=== PATIENT | female | born 1990 | race Caucasian/White ===

== ENCOUNTER 2017-03-26 12:05 | Emergency (ER) | payer BC, OTHER ==
[~2017-03-26] VITALS: Ht 154.9 cm; Wt 63.6 kg
[2017-03-26] MEDS ORDERED: Birth control pill PO (12:18)
[2017-03-26] MEDS ORDERED: IBUPROFEN 600 MG TAB PO ONE (12:30)
[2017-03-26] MEDS ORDERED: IBUP-1022 PO (13:44)
[2017-03-26] MEDS ORDERED: CYCL10TA PO (13:44)
[2017-03-26 14:04] VITALS: BP 128/82
--- NOTE | 2017-03-26 14:20 | REP ---
REASON: Pain in the neck after trauma. PRIORS: None. There is no acute cervical spine fracture. The facet joints are well aligned bilaterally. There is mild cervical kyphosis possibly secondary to muscular spasm. Vertebral body height and alignment is otherwise unremarkable. The disc spaces are symmetric and well maintained. There is no abnormal paraspinal soft tissue swelling. IMPRESSION: No fracture. Signed by Lionel Brush DO 03/26/2017 04:41 P
--- NOTE | 2017-03-26 14:23 | REP ---
REASON: Pain after trauma. COMPARISON: None. The exam is limited by the lack of intravenous contrast administration. There is no mediastinal or hilar adenopathy. There are no pleural or pericardial effusions. The imaged upper abdomen is within normal limits. The imaged osseous structures are within normal limits. Evaluation of the lung benitez show a minimal focal opacity in the posterior right upper lobe most consistent with subsegmental atelectatic change. The lung benitez are otherwise clear. There is no pneumothorax. IMPRESSION: Essentially negative CT examination of the chest. Signed by Lionel Brush DO 03/26/2017 04:41 P
--- NOTE | 2017-03-26 14:34 | REP ---
REASON: Pain after trauma. COMPARISON: None. FINDINGS: The compartments are symmetric and relatively well maintained. There is no acute fracture or destructive osseous lesion. Signed by Lionel Brush DO 03/26/2017 04:41 P
--- NOTE | 2017-03-26 14:35 | REP ---
REASON: Pain after trauma. PRIORS: None. FINDINGS: No acute fracture or destructive osseous lesion. Signed by Lionel Brush DO 03/26/2017 04:41 P
== END 2017-03-26 14:08 | disposition home or self-care (01) ==
LOC: EDBD → M ED 12:05
DX: S13.4XXA Sprain of ligaments of cervical spine, initial encounter (principal); S80.01XA Contusion of right knee, initial encounter; S50.12XA Contusion of left forearm, initial encounter; S20.219A Contusion of unspecified front wall of thorax, initial encounter; V49.40XA Driver injured in collision with unspecified motor vehicles in traffic accident, initial encounter; Y92.89 Other specified places as the place of occurrence of the external cause; Z79.3 Long term (current) use of hormonal contraceptives

== ENCOUNTER 2017-06-08 10:51 | Emergency (ER) | payer BC, OTHER ==
[~2017-06-08] VITALS: Ht 154.9 cm; Wt 67.2 kg
[~2017-06-08 10:51] MED LIST: Birth control pill PO; CYCL10TA PO; IBUP-1022 PO
[2017-06-08] MEDS ORDERED: ONDANSETRON 4MG/2ML VIAL (J2405) IV ONE (11:15)
[2017-06-08] MEDS ORDERED: NS 1,000 ML IV ONE (11:15)
[2017-06-08 11:27] LABS: BASO # 0.1 10^3/uL (0.0-0.2); BASO % 0.8 % (0.0-1.0); EOS # 0.1 10^3/uL (0.0-0.50); EOS % 1.3 % (0.0-3.0); IMMATURE GRANULOCYTE % 0.4 % (0-0); LYMPH # 1.9 10^3/uL (1.5-6.5); LYMPH % 24.2 % (24.0-44.0); MEAN CORPUSCULAR HEMOGLOBIN 28.4 pg (27.0-33.0); MEAN CORPUSCULAR HGB CONC 33.8 g/dl (32.0-36.5); MONO # 0.8 10^3/uL (0.0-0.8); MONO % 9.4 % (0.0-5.0); NEUTROPHILS # 5.1 10^3/uL (1.8-7.7); NEUTROPHILS % 63.9 % (36.0-66.0); PLATELET COUNT, AUTOMATED 418 10^3/uL (150-450); RED CELL DISTRIBUTION WIDTH 13.2 % (11.5-14.5)
[2017-06-08] MEDS ORDERED: KETOROLAC 30 MG/ML VIAL (J1885) IV ONE (11:30)
[2017-06-08 11:57] LABS: ALBUMIN 4.5 GM/DL (3.2-5.2); ALBUMIN/GLOBULIN RATIO 1.25 (1.00-1.93); ALKALINE PHOSPHATASE 71 U/L (45-117); ALT/SGPT 24 U/L (12-78); ANION GAP 6 MEQ/L (8-16); AST/SGOT 26 U/L (15-37); BILIRUBIN,DIRECT 0.1 MG/DL (0.0-0.2); BILIRUBIN,TOTAL 0.4 MG/DL (0.2-1.0); BLOOD UREA NITROGEN 10 MG/DL (7-18); CALCIUM LEVEL 9.6 MG/DL (8.5-10.1); CARBON DIOXIDE LEVEL 29 MEQ/L (21-32); CHLORIDE LEVEL 104 MEQ/L (98-107); GLOMERULAR FILTRATION RATE > 60.0 (>60); GLUCOSE, FASTING 79 MG/DL (70-105); POTASSIUM SERUM 4.1 MEQ/L (3.5-5.1); SODIUM LEVEL 139 MEQ/L (136-145); TOTAL PROTEIN 8.1 GM/DL (6.4-8.2)
[2017-06-08] MEDS ORDERED: ISOVUE-370 76% 100ML VIAL (Q9967) As Ordered ONE (13:29)
[2017-06-08] MEDS ORDERED: IBUP-1022 PO (14:22)
--- NOTE | 2017-06-08 14:29 | REP ---
NON-OB PELVIC ULTRASOUND: HISTORY: Right lower quadrant pain. The uterus measures 4.4 cm in transverse by 3.7 cm in AP by 7.1 cm in cephalocaudal dimensions. The endometrium measures 3.7 mm. The right ovary measures 3.2 x 2 x 1.9 cm. The left ovary measures 2.1 x 1.5 x 2.9 cm. Small bilateral follicles are present. There is no fluid in the cul-de-sac. IMPRESSION: Normal pelvic ultrasound. Signed by Juma aMres MD 06/08/2017 02:33 P
[2017-06-08 14:51] VITALS: BP 118/72
--- NOTE | 2017-06-08 15:05 | REP ---
CT abdomen and pelvis with IV but without oral contrast: History: Right lower quadrant pain. CT contrast dose: 100 ml of intravenous Isovue 370. CT findings: Digital preliminary shuttler radiograph is unremarkable. Axial images of the lung bases demonstrate a 5 mm noncalcified pulmonary nodule in the right lower lobe on image #1 of 37 in series 204 of today's study. The lung bases are otherwise clear. This is likely a granuloma. No pleural effusion is seen. The liver and the spleen are normal in size and homogeneous in texture. There are is a focal dystrophic calcification in the right adrenal gland. No adrenal mass or nodule is seen. This may be granulomatous as well versus an old adrenal hemorrhage. No pancreatic lesion is seen. Gallbladder is unremarkable. The kidneys enhance symmetrically and are morphologically intact. A normal appendix is visible in the right lower quadrant extending medially into the superior pelvis. No uterine or ovarian abnormality is seen. Small and large intestinal bowel loops are unremarkable. No abdominal wall defect is seen. Bone window settings demonstrate spina bifida occulta in the upper sacrum. No other significant bony abnormality. Impression: Normal appendix seen. No acute intra-abdominal abnormality. There is a 5 mm noncalcified nodule in the right lower lobe of the lung and there is a focal dystrophic calcification in the right adrenal gland, which may be old granulomatous change as well. Signed by Tarun Dean MD 06/08/2017 05:01 P
== END 2017-06-08 14:55 | disposition home or self-care (01) ==
LOC: M ED 10:51 → EDBD 10:51 → M ED 14:55
DX: R10.31 Right lower quadrant pain (principal); Z87.42 Personal history of other diseases of the female genital tract
CPT/HCPCS: 74177; 76830; 76856; 80048; 80076; 81001; 81025; 85025; 93976; 96361; 96374; 96375; 99284; J1885; J2405; Q9967

== ENCOUNTER 2017-10-11 10:13 | Emergency (ER) | payer OTHER, BC | END 2017-10-11 13:33 | disposition home or self-care (01) | LOC: M ED 10:13 | DX: S43.401A Unspecified sprain of right shoulder joint, initial encounter (principal); W19.XXXA Unspecified fall, initial encounter; Y92.89 Other specified places as the place of occurrence of the external cause | CPT/HCPCS: 73030 ==